=== PATIENT | female | born 1985 | race Caucasian/White ===

== ENCOUNTER → 2018-05-07 11:01 | Outpatient (CLI) | payer OTHER, SELFPAY ==
[2015-08-14 21:39] VITALS: BMI 34.9
[2018-05-07 17:25] LABS: Chlamydia Trachomatis by PCR Negative (Negative); Neisserai gonorrhoeae by PCR Negative (Negative); Probe Check PASS; Sample Adequacy Control PASS; Specimen Processing Control PASS
[2018-05-09 16:23] LABS: HPV Reflexed? NOT INDICATED
== END ==
PROVIDERS: Referring Provider Obstetrics & Gynecology; Visit Provider Obstetrics & Gynecology
DX: Z12.4 Encounter for screening for malignant neoplasm of cervix (principal); Z11.3 Encounter for screening for infections with a predominantly sexual mode of transmission
CPT/HCPCS: 87491; 87591; 87624; 88175; G0145

== ENCOUNTER 2018-05-30 07:06 | Day surgery (SDC) | payer SELFPAY ==
--- NOTE | 2018-05-29 10:14 | HP.PCM_ITS ---
History and Physical Date of Admission: 05/30/18 Surgical History and Physical Ruth Clark, a 32 year old female 3 0 0 0 3, presents for on at . -- Inevitable Miscarriage -- No Heart Tones on 9w3d U/S; Additional comments are: no bleeding yet. MEDICATIONS HISTORY: Patient is also takin. Calcium w/Vit. D, bid 2. Vitamins OTC, daily 3. Vitamin B Complex tablet, One pill by mouth once a day ALLERGIES: NKDA Infections - Chicken pox Illnesses - none Accidents - None Hospitalizations - see surgery Review of Systems: GENERAL - Denies fever, or chills SKIN - Denies skin changes EYES - Denies visual changes EARS - Denies difficulty hearing NOSE - Denies nasal congestion or bleeding MOUTH - Denies sore throat or difficulty swallowing NECK - Denies pain or swelling RESPIRATORY - Denies shortness of breath or wheezing CARDIOVASCULAR - Denies palpitations or chest pain GASTROINTESTINAL - Denies nausea, vomiting, diarrhea, constipation GENITOURINARY - Denies dysuria, frequency of urination, incontinence of urine MUSCULOSKELETAL - Denies joint or muscle pain NEUROLOGICAL - Denies localized numbness or weakness PSYCHIATRIC - Denies depression or anxiety ENDOCRINE - Denies heat or cold intolerance, weight loss or gain HEMATO-IMMUNOLOGIC - Denies excesive bleeding with cuts SOCIAL HISTORY: Alcohol Use - None Smoking - Never Diet - no special diet Lifestyle - moderate stress lifestyle and Exercise - active Seat Belt Use - always Employer - Unemployed Job Description - Homemaker Illicit Drug Use - None Sexual Activity - Residence - owns a home Spouse-Sig Other Name - Merle Spouse-Sig Other Occupation - Automation Engineering Technician Children Name(s) - Sky '12, Leah '14, Cristian(16) Control - FAMILY HISTORY: Paternal Grandfather: DM I. MENSTRUAL HISTORY: LMP Known?- DefiniteAmount/Duration - 3 days, Regularity - Regular, Frequency - monthly days, LMP - 03/22/18, Age Onset Menarche - 13 PAST PREGNANCIES: Total Pregnancies - 4; Full Term Pregnancies - 3; Premature - 0; Abortions, Induced - 0; Abortions, Spontaneous - 0; Ectopics - 0; Multiple Births - 0; Living Children - 3 SURGICAL HISTORY: 1. T and A, 10 yrs ago ; - 2. 08/16/2011 cholecystectomy ; - 3. 09/25/2012 [place] Teeth Removed ; - PHYSICAL EXAM BP- 118/68 Sitting, Left arm, large cuff Temp- 100.6 Taken by Ear Weight- 213.45137 lbs Height- 67 inch BMI:33.43 CONSTITUTIONAL - NAD, well nourished, and well developed SKIN - No rash, lesions, or ulcers HEENT - Normocephalic, PERRLA, EOMI NECK - No nodes, no nuchal rigidity and thyroid normal size and texture LYMPH NODES - Palpation of lymph nodes in neck and groins within normal limits LUNGS - CTA x2 without wheezes, crackles or rales CARDIAC - Regular rate and rhythm without rubs, murmurs, or gallops BREAST - No dominant masses, no tenderness, no axillary adenopathy, no nipple discharge, no skin changes ABDOMEN - Without hepatosplenomegaly, distention, masses, rebound, or guarding; normal bowel sounds; no hernias EXTREMITIES - No edema or calf tenderness NEUROLOGICAL - Cranial nerves II-XII grossly intact PSYCHIATRIC - A and O to time, place, person, mood and affect External Genitial Vagina - non-tender without lesions Urethra/Urethral Meatus - non-tender Bladder - non-tender Vagina - vaginal rubio are pink and moist without loss of rugae and no evidence of atropy Cervix - without cervical motion tenderness and has normal size and features without evident lesions Uterus - multiparous size 6 cm & wt 75-125 g Adnexa - clear without massess or tenderness ASSESSMENT/PLAN: 1. Spontaneous , Incomplete, Without Mention Of Complication Reviewed results of u/s showing no FHTs at 9 weeks. Discussed options for treatment including expectant management vs proceeding with Suction D and E. Wants to proceed with the Suction D and E. Discussed RBAs and all questions answered.
[2018-05-29 16:07] LABS: Hematocrit 43.7 % (37-47); Mean Corp Hgb Conc 34.3 g/gl (32-36); Mean Corpuscular Hgb 31.7 pg (27.0-32.0); Mean Corpuscular Volume 92.4 fL (81-99); Mean Platelet Vol. 10.6 fl (6.2-12.0); Platelet Count 193 K/mm3 (150-450); RBC Distribution Width CV 13.7 % (11.6-14.6); RBC Distribution Width SD 45.9 fl (35.1-43.9); Red Blood Count 4.73 M/mm3 (4.2-5.4); White Blood Count 7.6 K/mm3 (4.4-11.0)
[2018-05-29 16:10] LABS: Scan Indicated on CBC? Y/N NO
[2018-05-30] VITALS (7 sets, daily range): BP systolic 108–114; BP diastolic 63–78; PULSE 69–85; RESP 16–18; TEMP 36.3–37.3; O2SAT 98–100; BMI 32.8
--- NOTE | 2018-05-30 | POC_PTH ---
PATIENT: CHRIS MORE [place] [facility] [place][id number] AGE/SX: 32/F ROOM: RE05/30/[address]: Dr. Fco Luz MD : 1985 BED: DIS: 05/30/2018 SPEC #: [id number] RECD: 05/30/18 13:35 STATUS: RED MCNEAL #: [id number] DALE: 05/30/18 00:[address]: Fco Luz DEPT: SURGICAL PATHOLOGY RECD BY: Joel Cartwright ENTERED: 05/30/18 13:35 SP TYPE: PROD CONC OTHR DR: Dr. Jude Kothari MD Tissues: Product of conception, NOS Procedures: Surgery Specimen Level IV HEADER OPERATION: Suction dilation and curettage PRE-OP DIAGNOSIS: Inevitable TISSUE SUBMITTED: Products of conception MICROSCOPIC DIAGNOSIS Endometrium, curettage: Chorionic villi, decidualized stroma and trophoblastic cells consistent with products of conception. AM:ramirez 06/02/18 MICROSCOPIC DESCRIPTION Slides are reviewed. GROSS DESCRIPTION Received in fixative is one container labeled with the patient's name and designated products of conception. The specimen consists of multiple fragments of hemorrhagic soft tissue that in aggregate measure 7 x 7 x 2 cm. tissue is not identified. Faa Certified Powerplant Mechanic tissue is submitted in two cassettes. / SJ:rg 05/30/18 TC:5 CPT: 82415
--- NOTE | 2018-05-30 08:23 | PCM.OPRPT ---
Report of Operation Date of Procedure: 05/30/18 Pre-Operative Diagnosis: Inevitable Miscarriage Post-Operative Diagnosis: Inevitable Miscarriage Surgery/Procedure Performed:: Suction Dilation and Evacuation Description of Surgical Findings:: 8 cm endometrial cavity with products of conception Type of Anesthesia:: MAC Anesthesiologist: Yasmani Edgar Specimen's removed: Products of conception Estimated Blood Loss (mL): Minimal Fluids Replaced: Crystalloid Description of Procedure: - Surgeon: Fco Luz MD, FACOG Indication: 32 Year patient with incomplete AB at 9-11 weeks gestation with a 9 week IUP without FHTs. Pt has been counseled re RBAs and all questions answered. Procedure: Pt taken to the OR where she was given IV sedation. The patient was prepped and draped in the usual sterile fashion. Anterior cervix grasped and cervix dilated to 10mm. A 9 mm suction curette was inserted into the cervix and all contents removed. Uterus was gently curetted and remaining tissue removed. Pt tolerated the procedure well and was taken to the recovery room in satisfactory condition. Sponge, instruments and needle counts were all correct. There were no apparent complications of the surgery. To Pathology: POC EBL Minimal. Grafts/Implants Used: None - Complications None - Admit VTE Documentation VTE Present on Admission: Yes VTE Mechan Device Prophylaxis: SCD's
--- NOTE | 2018-05-30 08:28 | DCINST_ITS ---
Discharge Diet: No Restrictions Discharge Activity: Return to Normal Activity, May Shower, May Take a Tub Bath May resume sexual activity in: 2 weeks Call your doctor if you observe: Fever of 101 or Higher, Inability to urinate, Inability to have a bowel movement, Using more than one pad per hour Allergies/Adverse Reactions: Allergies No Known Allergies Allergy (Verified 05/29/18 09:27) Medications to take at Discharge Vits [Prenatabs FA ] 1 tablet PO DAILY #30 tablet 07/29/13 B Complex with Vitamin C [B-Complex Plus Vitamin C] 1 each PO DAILY 08/07/15 Calcium Carbonate [Calcium] 600 mg PO DAILY 05/29/18 Primary Care Physician: Kimo Kothari MD [Primary Care Provider] - Test Results: Test results from this visit will be discussed in further detail at your follow- up appointment, if applicable. Please Follow Up With: Fco Luz MD When: 2-3 weeks
== END 2018-05-30 10:37 | disposition home or self-care (01) ==
LOC: SDC 07:07 → AC 07:07
PROVIDERS: Family Provider Family Medicine; PCP Family Medicine; Referring Provider Obstetrics & Gynecology; Visit Provider Obstetrics & Gynecology
PROC: (CPT 59812; principal; 2018-05-30 08:15)
DX: O03.4 Incomplete spontaneous abortion without complication (principal)
CPT/HCPCS: 59812; 36415; 85027; 86850; 86900; 88305; J7120

== ENCOUNTER → 2019-04-08 | Outpatient (CLI) | payer SELFPAY ==
[2018-05-30 07:26] VITALS: BMI 32.8
[2019-04-08 17:28] LABS: Chlamydia Trachomatis by PCR Negative (Negative); Neisserai gonorrhoeae by PCR Negative (Negative); Probe Check PASS; Sample Adequacy Control PASS; Specimen Processing Control PASS
== END | disposition home or self-care (01) ==
LOC: LABSPEC 13:52
PROVIDERS: PCP Family Medicine; Visit Provider Obstetrics & Gynecology
DX: Z11.3 Encounter for screening for infections with a predominantly sexual mode of transmission (principal)
CPT/HCPCS: 87491; 87591

== ENCOUNTER → 2019-04-24 12:16 | Outpatient (CLI) | payer SELFPAY ==
[2018-05-30 07:26] VITALS: BMI 32.8
[2019-04-24 12:49] LABS: Color, Urine Yellow (Yellow); Glucose, Dipstick Normal (Normal); Ketone-Dipstick Negative (Negative); Leukocyte Esterase-Dipstick 100 /ul (Negative); Nitrite-Dipstick Negative (Negative); Occult Blood-Urine Negative /ul (Negative); Protein-Dipstick Negative (Negative); Urine Bilirubin Dipstick Negative (Negative); Urine Clarity Sl. Cloudy (Clear); Urine Urobilinogen Normal (Normal); Urine pH 6.5 (5.0 - 8.0)
[2019-04-24 12:58] LABS: Absolute Lymphocyte Count 1.38 X10^3/uL (0.83-4.51); Absolute Neutrophil Count 6.1 X10^3/uL (2.0-7.7); Basophil# 0.03 X10^3/uL; Basophil% 0.4 % (0-1); Eosinophil# 0.16 X10^3/uL; Eosinophils% 1.9 % (0-5); Hematocrit 45.4 % (37-47); Lymphocyte # 1.38 X10^3/ul (4.0); Lymphocyte % 16.6 % (19-41); Mean Corpuscular Hgb 31.2 pg (27.0-32.0); Mean Corpuscular Volume 94.4 fL (81-99); Mean Platelet Vol. 10.4 fl (6.2-12.0); Monocyte# 0.55 X10^3/uL; Monocyte% 6.6 % (0-10); NRBC Flagged by Analyzer 0 % (0-5); Neutrophil # 6.12 X10^3/uL (2.7-7.7); Neutrophil % 73.9 % (47-70); Platelet Count 207 K/mm3 (150-450); RBC Distribution Width CV 12.7 % (11.6-14.6); RBC Distribution Width SD 43.8 fl (35.1-43.9); Red Blood Count 4.81 M/mm3 (4.2-5.4); White Blood Count 8.3 K/mm3 (4.4-11.0)
[2019-04-24 13:58] LABS: Thyroid Stim Hormone (TSH) 2.39 uIU/mL (0.358-3.74)
[2019-04-24 14:36] LABS: HIV - WCH Non-Reactive (Nonreactive); Hepatitis B Surface Antigen Non-Reactive (Nonreactive); Hepatitis C Antibody Non-Reactive (Nonreactive); Rubella IgG 188.6 IU/mL
[2019-04-30 02:24] LABS: Prenatal RPR NONREACTIVE (NONREACTIVE)
== END ==
PROVIDERS: Obstetrics & Gynecology; PCP Family Medicine; Visit Provider Obstetrics & Gynecology
DX: Z34.81 Encounter for supervision of other normal pregnancy, first trimester (principal)
CPT/HCPCS: 36415; 81002; 84443; 85025; 86703; 86762; 86803; 87340

== ENCOUNTER → 2019-10-20 | Outpatient (CLI) | payer SELFPAY ==
[2018-05-30 07:26] VITALS: BMI 32.8
== END | disposition home or self-care (01) ==
LOC: LABSPEC 10-21 09:17
PROVIDERS: PCP Family Medicine; Visit Provider Obstetrics & Gynecology
DX: Z36.85 Encounter for antenatal screening for Streptococcus B (principal)
CPT/HCPCS: 87081

== ENCOUNTER 2019-11-04 07:00 | Inpatient (IN) | payer SELFPAY ==
[2018-05-30 07:26] VITALS: BMI 32.8
[2019-11-04] VITALS (18 sets, daily range): BP systolic 111–135; BP diastolic 57–86; PULSE 74–98; RESP 14–16; TEMP 36.7–37.3; O2SAT 96–99; BMI 41.1
[2019-11-04] MEDS: Lactated Ringers 1,000 ML 50 ML IV (08:00)
[2019-11-04 08:24] LABS: Partial Thromboplast Time 23.4 Seconds (24.1-36.2); Prothrombin Time (Protime)PT. 12.6 SECONDS (11.7-14.9)
[2019-11-04 08:25] LABS: Absolute Lymphocyte Count 1.22 X10^3/uL (0.83-4.51); Absolute Neutrophil Count 7.5 X10^3/uL (2.0-7.7); Basophil# 0.04 X10^3/uL; Basophil% 0.4 % (0-1); Eosinophil# 0.13 X10^3/uL; Eosinophils% 1.3 % (0-5); Hematocrit 39.2 % (37-47); Hemoglobin 12.9 g/dL (12.0-15.0); Lymphocyte # 1.22 X10^3/ul (4.0); Lymphocyte % 12.6 % (19-41); Mean Corp Hgb Conc 32.9 g/dL (32-36); Mean Corpuscular Volume 94.2 fL (81-99); Mean Platelet Vol. 11.5 fl (6.2-12.0); Monocyte# 0.71 X10^3/uL; Monocyte% 7.3 % (0-10); NRBC Flagged by Analyzer 0 % (0-5); Neutrophil # 7.54 X10^3/uL (2.7-7.7); Neutrophil % 77.8 % (47-70); Platelet Count 181 K/mm3 (150-450); RBC Distribution Width CV 13.7 % (11.6-14.6); RBC Distribution Width SD 47.6 fl (35.1-43.9); Red Blood Count 4.16 M/mm3 (4.2-5.4); White Blood Count 9.7 K/mm3 (4.4-11.0)
[2019-11-04] MEDS: Oxytocin 30 units/NS 500 ml 30 UNITS/500 ML IV.SOLN IV (08:27)
[2019-11-04 08:33] LABS: AST(SGOT) 13 U/L (15-37); Alanine Aminotransfer ALT/SGPT 11 U/L (13-56); Creatinine, Serum 0.65 mg/dL (0.55-1.02); EST Glomerular Filtration Rate 111 mL/min (>60); Est Glom Filt Rate - Afr Amer 134 mL/min (>60); Estimated Creatinine Clearance 119.71 ml/min; Uric Acid 4.5 mg/dL (2.6-6.0)
--- NOTE | 2019-11-04 09:03 | HP.PCM_ITS ---
History and Physical Date of Admission: 11/04/19 [facility] [place] ANTEPARTUM RECORD - HISTORY AND PHYSICAL (11/04/2019) Name: HCRIS MORE History of This : This is a 34-year-old Ab1 who presents for induction for gestational hypertension at 38+ weeks gestation. care has otherwise been uneventful. OB Physician: ROSE Saraland's Physician: Ivana Ruiz..................................................................... : 1985 Age: 34 Address: [address] [place] [address] Phone: (h) [phone] (o) [phone] Insurance Carrier: Emergency Contact: KIANNA MORE/MOTHER [phone] ...................................................................... Final GRIS: 11/16/19 By Ultrasound: 11 weeks 1 day PARITY: (G-Total Pregnancies P-Fullterm,Premature,Induced AB,Spont AB, Ectopics, Multiple,Living) GRIS CONFIRMATION: By LMP: 02/17/19 Final GRIS: 11/16/19 OB PROBLEM LIST: A negative RhoGAM at 28 wks. Declines AFP and CF testing EPDS = 4 has a niece with Down Syndrome Prefers no epidural ALLERGIES: NKDA MEDICATIONS: Augmentin 875 mg-125 mg tablet One pill by mouth twice a day Calcium w/Vit. D bid Vitamins OTC daily Vitamin B Complex tablet One pill by mouth once a day SOCIAL HISTORY: Smoking - Never Alcohol Use - denies drinking Diet - moderate, balanced diet Lifestyle - low stress lifestyle and Exercise - active Employer - Unemployed Job Description - Homemaker Illicit Drug Use - denies use of street drugs Sexual Activity - Residence - lives with Place of - [place], [place] Spouse-Sig Other Name - Smitha Spouse-Sig Other Occupation - Self-employed adoption counselor Spouse-Sig Other Phone No - [phone] Children Name(s) - Sky '12, Leah '14, Cristian(16) PRIOR DELIVERY HISTORY DEL DATE GEST LAB WT LB WT OZ TYPE ANES LABOR TX Feb 22 39 10 8 1 Vag None No 18 Florencio 14 38 8 7 4 Vag None No 19 Apr 19 9 0 0 0 Sab General No 26 Florencio 16 37 6 7 12 Vag None No ANTEPARTUM FLOW CHART VISIT GE RTC FU F F AK U U DATE WK MD WKS HT PN HR M SS BP ED WT AK GL D EF ST __ ____ ___ __ __ ___ __ __ __ ___ __ __ __ ___ __ 22 Sep 38 JMW 6 38 V + + 158/86 1+ 266 tr - 4 50 -2 15 Oct 37 JMW 1 37 V + + 110/70 sl 259 - - 2+ 50 -2 08 Oct 36 JMW 1 36 V + + 134/80 1+ 261 - - ft 50 hi 25 Sep JMW 2 34 V + + 104/68 1+ 259 tr - 04 Oct 11 JMW 3 31 + + 108/62 1+ 255 tr - Sep 07 JMW 3 28 + + 118/70 1+ 250 tr - 16 Aug 04 JMW 4 24 + + 112/68 sl 247 tr - June 30 JMW 4 20 + + 138/84 sl 239 - - 14 May 26 JMW 4 15 + + 124/76 0 236 - - 13 Apr 20 CH 4 on 120/80 0 233 - - ANTEPARTUM NOTE(S): Nov 03 2019: gest HTN; induce, ctxs Oct 27 2019: Ctxs-occas, Low Pressure,Good FM Oct 20 2019: GBS Today,LARC form signed,Low cramping Oct 06 2019: Ctxs-occas, Good FM,Feeling Well Sep 15 2019: Feeling Well,Good FM Aug 24 2020: CBC,OGCT,Antibody Screen & Rhogam Today Jul 28 2019: Glucola/Instructions given,Good FM Jul 02 2019: Sono Today,Good FM,Feeling Well May 26 2019: Nausea Resolved, Questionable Quickening Apr 23 2020: L calf and thigh tenderness COMPREHENSIVE ANTEPARTUM NOTE(S): Nov 03 2019: Chris presents for her PNV. She reports good FM, and has 1+ pitting edema in her Lt lower extremity and only sl edema in her Rt lower extremity. Initial BP is elevated at 158/86 sitting Lt arm Lg cuff. Repeat BP Rt arm Lg cuff lying on Lt side is 118/72. Pt sts she awoke this am with a mild ACKERMAN, but sts she is over tired and did not sleep well. No visual disturbances. JT Oct 28 2019: H taken to OB. tkg Aug 25 2019: Chris presents here today for PNV with 50 gm 1 hr OGCT, CBC and Antibody Screen drawn via undersigned in (R) antecubital with 23g x 1 attempt without problem. After blood draw Rhogam full dose was given in RUOQ IM without problem as well for history of A Negative blood type. Good FM and denies new concerns at this time. MARY Apr 24 2019: (m,f,m,*) NOB US reveals GRIS of 20 inconsistent with LMP. GA 10w4d. FHR on US 150. NOB RN appt with no questions. Labs drawn today and understands no news is good news. Reports previous hot spot behind left calf with last and studies done which revealed it was fine, just a vein. After a road trip last week she noticed it was hurting already with it traveling up the leg. No redness, warmth or edema. Advised to buy thigh high RED hose to try. If this is not working or any redness etc develops she should call for additional studies to be done. Thinks this is her last , but understands it can get worse with each . EPDS=4 with no concerns. To start routine PNV and return in 4 weeks. - Apr 24 2019: Chris is here for her NOB visit at 10 w 4 d, she is a A1 L3 with an GRIS of 11/16/2019. She and her , Smitha, have three children at home; all were delivered by . She plans a vaginal delivery without an epidural at [facility], and will breastfeed. Past history updated. Chris states that she feels generally well, and has only experienced a few periods of nausea, but felt better after eating. Small frequent meals with protein included throughout the day and adequate water hydration of at least one gallon per 24 hours encouraged. C/O left high/calf pain, no erythema or warmth noted; state sthat she had a similar issue last ; will discuss this further with Fanta Davison CNM today. Office practice patterns reviewed, including labs that will be collected today. She has read through the office handbook, including emergencies/danger signs to report, and common OTC medications approved/not approved for use during . She knows to report any suspected UTI's. Round ligament pain discussed. Chris is a life long non- smoker, and she denies use of drugs or ETOH. She takes a gummy vitamin and states that she tolerates this well. Genetic Screening form completed, her has a niece with Down Syndrome. Chris declines AFP and CF testing, consent signed as such. History of depression/anxiety denied, EPDS = 4 today. Water and dietary needs for reviewed, including recommended weight gain, caloric needs, limiting empty calories, and limiting caffeine to one cup a day. Printed guide for food safety during provided with review. Chris walks several times a week, and plans to continue to do so. Kegel exercises reviewed. Lifting restrictions discussed. Chris states that she understands all information provided during NOB visit and that she has no questions following same. AW New Apr 08 2019: ok Apr 08 2019: Chris presents here today for Missed Menses appointment. 33 y.o. G 5 P 3 non-smoker with regular menses and LMP of 02-17-19 lasting her average of 3-4 days. UPT is positive today in our Office. Presents at 7 weeks with an approximate GRIS of 10--20. Denies spotting/bleeding thus far with brief review of danger signs and bleeding with . Reports having nausea and tender breasts. Currently taking an OTC Vitamin with Educational Materials given. Medication and Allergy lists up-dated. History of all normal pap screenings from 2010 through 04/2018. MARY REVIEW OF SYSTEMS: GENERAL - Denies fever, or chills SKIN - Denies rash, new skin lesions, or change in moles EYES - Denies blurred vision, or change in visual acuity EARS - Denies ear pain, or difficulty hearing NOSE - Denies nasal congestion, discharge, or bleeding MOUTH - Denies sore throat, or difficulty swallowing NECK - Denies pain or swelling RESPIRATORY - Denies shortness of breath, cough, wheezing CARDIOVASCULAR - Denies palpitations, chest pain, orthopnea, PND, peripheral edema, syncope or claudication GASTROINTESTINAL - Denies nausea, vomiting, diarrhea, constipation, Denies abdominal pain, melena and or bright red blood GENITOURINARY - Denies dysuria, frequency of urination, urgency, or hesitancy MUSCULOSKELETAL - Denies joint or muscle pain, or back pain NEUROLOGICAL - Denies localized numbness, weakness, or tingling PSYCHIATRIC - Denies depression, anxiety, substance abuse or suicide attempts ENDOCRINE - Denies heat or cold intolerance, weight loss or gain, increasing thirst HEMATO-IMMUNOLOGIC - Denies easy bruising, bleeding, oral ulcerations or recurrent infections GENETICS SCREENING: Age 35+ years: No Thalassemia: No Neural Tube Defect: No Down Syndrome: Yes, spouse's niece SANDY-SACHS: No Sickle Cell Disease: No Hemophilia: No Musc. Dystrophy: No Cystic Fibrosis: No-declines screening Gregory Chorea: No Mental Retardation: No Fragile X: No Other genetic: No Other defects: No SABs/still births: No Drugs since LMP: No INFECTION HISTORY: High risk AIDS: No High risk Hepatitis: No Exposed to TB: No Exposed to Herpes: No Rash/viral illness since LMP: No History of STD: No MENSTRUAL HISTORY: *Menses Amount/Duration: 3 daysMenses Regularity: RegularFrequency: monthlyBCP's at Conception: NoMenarche (Age Onset): 13HCG+: 05/06/2018* PAST SUMMARY: PARITY: 1. Total Pregnancies............ 5 2. Full Term Pregnancies........ 3 3. Premature.................... 0 4. Abortions - Induced.......... 0 5. Abortions - Spontaneous...... 1 6. Ectopics..................... 0 7. Multiple Births.............. 0 8. Living Children.............. 3 PAST #1: Date of :.................. 02/22/11 Gestation Weeks:................ 39 Length of labor(hours):......... 10 Sex:............................ M Weight-lbs:............... 8 Weight-oz:................ 1 Type of Delivery:............... Vag Type of Anesthesia:............. None Place of Delivery:.............. [place] Treatment of Labor?:.... No Comment: PAST #2: Date of :.................. 07/29/13 Gestation Weeks:................ 38 Length of labor(hours):......... 8 Sex:............................ F Weight-lbs:............... 7 Weight-oz:................ 4 Type of Delivery:............... Vag Type of Anesthesia:............. None Place of Delivery:.............. [place] Treatment of Labor?:.... No Comment: PAST #3: Date of :.................. 08/07/15 Gestation Weeks:................ 37 Length of labor(hours):......... 6 Sex:............................ M Weight-lbs:............... 7 Weight-oz:................ 12 Type of Delivery:............... Vag Type of Anesthesia:............. None Place of Delivery:.............. [place] Treatment of Labor?:.... No Comment: PAST #4: Date of :.................. 05/30/18 Gestation Weeks:................ 9 Length of labor(hours):......... 0 Sex:............................ Weight-lbs:............... 0 Weight-oz:................ 0 Type of Delivery:............... Sab Type of Anesthesia:............. General Place of Delivery:.............. [place] Treatment of Labor?:.... No Comment: D+C PHYSICAL EXAMINATION General Appearence: 34 yo female in no acute distress Vital Signs: AF, VSS Heart: RRR without rubs or gallops Lungs: CTA x 2 Breasts: deferred Abdomen: gravid Pelvis: Cervix: Presentation: cephalic Station: Fetus: Size: AGA Movement: present Heart: present Labs for : CHRIS MORE since 02/19/2019 ORDER DATEIN DESCRIPTION VALUE UNITS RANGE A+ COMMENT CULTURE, GROUP B STREPTOCOCCUS 10/20/19 NOTE Original Ordering Provider: Phillip Fernandez JUDITH Culture Group B Beta Streptococcus is not isolated. Reviewed by PHILLIP BB ANTIBODY SCREEN 08/25/19 NOTE Original Ordering Provider: PHILLIP FERNANDEZ ANTIBODY SCR negative negative Reviewed by PHILLIP GLUCOSE CHALLENGE 50GM 1 HOUR 08/25/19 NOTE Original Ordering Provider: PHILLIP FERNANDEZ GLUCOSE CHALLENGE 50GM 1 HOUR GLUCOSE CHALLENGE 50 GMS 1 HOUR GLUCOSE 1HR 88 mg/dl 70 - 140 Reviewed by PHILLIP CBC + DIFF 08/25/19 NOTE Original Ordering Provider: PHILLIP FERNANDEZ CBC + DIFF CBC-COMPLETE BLOOD COUNT WBC 9.0 x 10EE3/UL 4.5 - 10.8 RBC 4.02 x 10EE6/UL 4.10 - 5.30 L HEMOGLOBIN 12.9 g/dl 12.0 - 16.0 HEMATOCRIT 37.8 % 34.0 - 46.0 MCV 94 fl 80 - 99 MCH 32 pg 27 - 33 MCHC 34 X10 3 32 - 36 RDW/CV 13.6 % 12.0 - 15.6 PLATELET 194 x10EE3/UL 150 - 450 MPV 9.6 fl 6.6 - 10.5 AUTOMATED DIFFERENTIAL NEUT % 79.9 % 46.0 - 76.0 H LYMPH % 12.4 % 20.0 - 45.0 L MONOS % 6.1 % 0.0 - 10.0 EO % 1.2 % 0.0 - 7.0 BASO % 0.4 % 0.0 - 2.0 LYMPH # 1.10 x10EE3/UL 0.80 - 2.80 NEUT # 7.20 x10EE3/UL 1.50 - 7.10 H MONO # 0.60 x10EE3/UL 0.20 - 1.00 EO # 0.10 x10EE3/UL 0.00 - 0.50 BASO # 0.00 x10EE3/UL 0.00 - 0.10 MANUAL DIFF N/A MORPHOLOGY N/A Reviewed by PHILLIP RPR 04/24/19 NOTE Original Ordering Provider: Phillip Fernandez RPR NONREACTIVE NONREACTIVE Reviewed by PHILLIP T AND S-NO CHARGE W/PNP 04/24/19 Reason for Type AND Screen/Red Cells: Surgery? [facility]~[place], [address]~ BLOOD TYPE GEL A NEGATIVE N AB SCREEN GEL NEGATIVE N Reviewed by TAWANDA HEPATITIS C ANTIBODY 04/24/19 NOTE Original Ordering Provider: Phillip Fernandez HEPATITIS C AB Non-Reactive Nonreactive Non Reactive: < 0.8 Equivocal: >/= 0.8 to < 1.0 Reactive: >/= 1.0 The CDC recommends that a reactive/equivocal HCV antibody result be followed up by the HCV Nucleic Acid Amplification test (381518) Reviewed by TAWANDA HEPATITIS B SURFACE ANTIGEN 04/24/19 NOTE Original Ordering Provider: Phillip Fernandez HEPB SURFACE AG Non-Reactive Nonreactive Reviewed by TAWANDA HIV - [facility] 04/24/19 NOTE Original Ordering Provider: Phillip Fernandez HIV [facility] Non-Reactive Nonreactive Reviewed by TAWANDA RUBELLA IGG 04/24/19 NOTE Original Ordering Provider: Phillip Fernandez RUBELLA IGG 188.6 IU/mL Antibody results Interpretation of Immune Status < 5 IU/ml Presumed Non-immune 5 - < 10 IU/ml Equivocal > or = 10 IU/ml Presumed Immune Reviewed by TAWANDA THYROID STIM HORMONE (TSH) 04/24/19 NOTE Original Ordering Provider: Phillip Fernandez TSH 2.39 uIU/mL 0.358-3.74 Reviewed by TAWANDA URINALYSIS, ROUTINE (DIPSTICK) 04/24/19 NOTE Original Ordering Provider: Phillip Fernandez COLOR Yellow Yellow CLARITY Sl. Cloudy Clear GLUCOSE, UR Normal mg/dl Normal BILIRUBIN URINE Negative mg/dL Negative KETONE UR Negative mg/dl Negative SP.GR. DIPSTX 1.010 1.002-1.030 PH UR 6.5 w 5.0 - 8.0 PROT DIPSTX Negative mg/dl Negative UROBILI Normal mg/dl Normal NITRITE UR Negative Negative OCCULT BLOOD-UR Negative /ul Negative LEUK ESTERASE 100 /ul Negative H Reviewed by TAWANDA CBC W/DIFF, AUTOMATED 04/24/19 NOTE Original Ordering Provider: Phillip Fernandez WBC 8.3 K/mm3 4.4-11.0 RBCw 4.81 M/mm3 4.2-5.4 HGB 15.0 g/dL 12.0-15.0 HCT 45.4 % 37-47 MCV 94.4 fL 81-99 MCH 31.2 pg 27.0-32.0 MCHC 33.0 g/dL 32-36 RDW CV 12.7 % 11.6-14.6 RDW SD 43.8 fl 35.1-43.9 PLT 207 K/mm3 150-450 MPV 10.4 fl 6.2-12.0 NEUT% 73.9 % 47-70 H LY% 16.6 % 19-41 L MONO% 6.6 % 0-10 EO% 1.9 % 0-5 BASO% 0.4 % 0-1 IM GRAN % 0.600 % 0.0-0.9 IG% - Immature Granulocytes (promyelocytes, myelocytes and metamyelocytes) > 1% indicates that a LEFT SHIFT is Present. ABSOLUTE NEUT 6.1 X10 3/uL 2.0-7.7 ABSOLUTE LYMPH 1.38 X10 3/uL 0.83-4.51 NRBC, FLAGGED 0 % 0-[address]/[facility] BY PCR 04/08/19 NOTE Original Ordering Provider: Phillip Fernandez CHLAM TRAC PCR Negative Negative NG BY PCR Negative Negative Reviewed by TAWANDA w Impression /Plan: 38 weeks 2 days gestation intrauterine with gestational hypertension. Headache this morning has resolved and blood pressures okay. PIH labs okay. Plan Pitocin and rupture of membranes. Preparations in progress for delivery.
[2019-11-04] MEDS: Oxytocin 30 units/NS 500 ml 30 UNITS/500 ML IV.SOLN 334 UNITS IV (12:16)
--- NOTE | 2019-11-04 12:24 | PCM.OPRPT ---
Vaginal Delivery Maternal Presentation: Medically Indicated Induction - Gestational hypertension Method of Induction: Pitocin, Amniotomy Medical Reason for Induction: Gestational Hypertension Amniotic Membrane Rupture Type: Artificial Amniotic Fluid Description: Clear Final GRIS: 11/16/19 Final GRIS Source: US <20 weeks Gestational age: 38 Weeks and 2 Days Date of Procedure: 11/04/19 Pre-Operative Diagnosis: IUP, Gestational Hypertension Post-Operative Diagnosis: IUP, Gestational Hypertension Surgery/ Procedure Performed: Spontaneous Vaginal Delivery Type of Anesthesia: None Description of Procedure: Spontaneous vaginal delivery of a viable male infant with Apgars of 8/9 from an occiput anterior presentation with clear amniotic fluid and normal three-vessel placenta. Cord around the neck x1 loose. No episiotomy. First-degree midline laceration repaired with a single [id number] Rapide Vicryl suture. Sponges okay. Delivery physician: Fco Luz M.D. Presentation: Vertex Placental Delivery Description: Spontaneous Placenta Disposition: [facility] Cord Vessel Description: 3 Vessels Cord Entanglement: Around neck x 1, loose Estimated Blood Loss: 250 cc Infant A gender: Male (1 minute): 8 (5 minute): 9 Episiotomy Description: None Laceration: Midline, 1st degree Medications given after delivery: IV Pitocin Complications: None
--- NOTE | 2019-11-04 12:27 | DCINST_ITS ---
<Fco Luz - Last Filed: 11/04/19 12:27> Discharge Diet: No Restrictions Discharge Activity: May Shower, May Take a Tub Bath May resume sexual activity in: 4-6 weeks Additional Activity Instructions:: Nothing in the vagina for 4-6 weeks. You may return to work/school in 6 weeks. Call your doctor if you observe: Inability to urinate, Inability to have a bowel movement, Using more than one pad per hour Additional Instructions: If you experience any of the following, contact your healthcare provider. * Bleeding that soaks a pad every hour for 2 hours * Fever 100.4 or higher * Unrelieved incision or abdominal pain * Swelling, redness, discharge or bleeding from your incision or episiotomy site * Your incision begins to separate * Problems urinating (including inability to urinate or burning while urinating). * Visual changes * Severe headache * Flu-like symptoms * Pain or redness in one of both of your breasts * Pain, warmth, tenderness or swelling in your legs, especially the calf area * Frequent nausea and vomiting * Symptoms of depression or anxiety If you experience any of the following, call 911 or go to the nearest Emergency Room. * Chest pain * Problems breathing * Seizure activity * Partial or complete paralysis of a body part, slurred speech, weakness or drooping of the face, or a sudden inability to walk or hold your balance Allergies/Adverse Reactions: Allergies No Known Allergies Allergy (Verified 11/04/19 07:31) Medications to take at Discharge B Complex with Vitamin C [B-Complex Plus Vitamin C] 1 each PO DAILY 08/07/15 Calcium Carbonate [Calcium] 600 mg PO DAILY 05/29/18 Vits [Prenatabs FA ] 1 tab PO DAILY 11/04/19 Acetaminophen [Tylenol] 1,000 mg PO Q8H PRN PRN tab 11/05/19 Ibuprofen [Motrin] 600 mg PO Q6H PRN PRN tab 11/05/19 Please Follow Up With: Fco Luz MD - [phone] When: Call to make an appointment with your doctor in 6 weeks. Primary Care Physician: Kimo Kothari MD [Primary Care Provider] - Test Results: Test results from this visit will be discussed in further detail at your follow- up appointment, if applicable. <Jasbir Clark - Last Filed: 11/05/19 07:33> Additional Instructions: If you experience any of the following, contact your healthcare provider. * Bleeding that soaks a pad every hour for 2 hours * Fever 100.4 or higher * Unrelieved incision or abdominal pain * Swelling, redness, discharge or bleeding from your incision or episiotomy site * Your incision begins to separate * Problems urinating (including inability to urinate or burning while urinating). * Visual changes * Severe headache * Flu-like symptoms * Pain or redness in one of both of your breasts * Pain, warmth, tenderness or swelling in your legs, especially the calf area * Frequent nausea and vomiting * Symptoms of depression or anxiety If you experience any of the following, call 911 or go to the nearest Emergency Room. * Chest pain * Problems breathing * Seizure activity * Partial or complete paralysis of a body part, slurred speech, weakness or drooping of the face, or a sudden inability to walk or hold your balance Test Results: Test results from this visit will be discussed in further detail at your follow- up appointment, if applicable.
--- NOTE | 2019-11-04 15:48 | NURSING ---
[employer] student charting reviewed and used for educational and learning purposes.
[2019-11-04] MEDS: Acetaminophen 500 MG Tablet 1000 MG PO (21:07)
[2019-11-05] VITALS: BP 113/60; PULSE 72; RESP 16; TEMP 37.1
[2019-11-05 04:00] VITALS: BP 117/64; PULSE 71; RESP 16; TEMP 36.9
[2019-11-05] MEDS: Ibuprofen 600 MG Tablet PO (04:40)
--- NOTE | 2019-11-05 07:33 | PN.OBGYN_ITS ---
Subjective: Objective: No overnight complaints. Pain well controlled. Denies nausea vomiting chest pain shortness of breath - Physical Exam Vitals/I&O's: Vital Signs Temp Pulse Resp BP Pulse Ox 98.5 F 71 16 117/64 99 11/05/19 04:00 11/05/19 04:00 11/05/19 04:00 11/05/19 04:00 11/04/19 14:05 Oxygen Delivery Method Room Air Weight: 263 lb Body Mass Index (BMI) 41.1 Intake and Output for Last 24 Hours 11/03/19 11/04/19 11/05/19 23:59 23:59 23:59 Intake Total 1129.21 / 1129.21 Output Total 400 / 400 Balance 729.21 / 729.21 General: Alert, Oriented x3, Cooperative, No apparent distress HEENT: Atraumatic, Normocephalic Oral: Moist Mucosa Neck: Supple Abdomen: Soft, Non Tender, Gravid - Fundus firm and at umbilicus Psych/Mental Status: Normal Affect, Appropriate, Alert and oriented to time, place, person, mood and affect Laboratory Results 11/04/19 07:55: WBC 9.7, RBC 4.16 L, Hgb 12.9, Hct 39.2, MCV 94.2, MCH 31.0, MCHC 32.9, RDW Std Deviation 47.6 H, RDW Coeff of Maurice 13.7, Plt Count 181, MPV 11.5, Immature Gran % (Auto) 0.600, Neut % (Auto) 77.8 H, Lymph % (Auto) 12.6 L, [place] % (Auto) 7.3, Eos % (Auto) 1.3, Baso % (Auto) 0.4, Absolute Neuts (auto) 7.5, Absolute Lymphs (auto) 1.22, Nucleated RBC % 0 11/04/19 07:55: Blood Type A NEGATIVE, Antibody Screen NEGATIVE 11/04/19 07:55: PT 12.6, INR 1.0, APTT 23.4 L 11/04/19 07:55: Creatinine 0.65, Estim Creat Clear Calc 119.71, Est GFR (MDRD) Af Amer 134, Est GFR (MDRD) Non-Af 111, Uric Acid 4.5, AST 13 L, ALT 11 L 11/04/19 15:20: Screen NEGATIVE, Baby's Blood Type O POSITIVE, Baby's YAMINI NEGATIVE Current Medications Acetaminophen (Tylenol) 1,000 mg PO Q8H PRN PRN PRN Reason: Pain Score 1-3/10 Last Admin: 11/04/19 21:07 Dose: 1,000 mg Documented by: Bisacodyl (Dulcolax) 10 mg RECTAL UD PRN PRN Reason: If no BM Dibucaine (Dibucaine) 1 applic TOPICAL TID PRN PRN; Protocol PRN Reason: Discomfort Hydrocortisone (Hytone) 1 applic TOPICAL TID PRN PRN; Protocol PRN Reason: Discomfort Ibuprofen (Motrin) 600 mg PO Q6H PRN PRN PRN Reason: Pain Score 1-3/10 Last Admin: 11/05/19 04:40 Dose: 600 mg Documented by: Methylergonovine Maleate (Methergine) 0.2 mg IM X1 PRN PRN Reason: Excess bleeding/uterine atony Ondansetron HCl (Zofran) 4 mg IV Q4H PRN PRN PRN Reason: Nausea Oxycodone HCl (Oxyir) 5 - 10 mg PO Q4H PRN PRN PRN Reason: Pain Score 4-10/10 Senna/Docusate Sodium (Senokot-S, [place]ore[place]-Colace) 1 - 2 tablet PO DAILY PRN PRN PRN Reason: Constipation Simethicone (Mylicon) 80 mg PO PCHS PRN PRN Reason: Indigestion/Stomach pain Sodium Chloride () 5 - 15 ml IV UD PRN PRN Reason: SALINE FLUSH Zolpidem Tartrate (Ambien (Generic)) 5 mg PO QHS PRN PRN PRN Reason: Insomnia Medical Necessity - Tobacco Use Smoking Status: Never smoker Assessment/Plan All Active Problems contractions (Acute) day 1. Pain well controlled. Breast-feeding. Okay to DC home
[2019-11-05] MEDS: Senna/Docusate Sodium 1 Tablet PO (08:28)
[2019-11-05 08:30] VITALS: BP 119/66; PULSE 79; RESP 16; TEMP 36.6
[2019-11-05 13:00] VITALS: BP 118/60; PULSE 82; RESP 16; TEMP 36.7
== END 2019-11-05 14:50 | disposition home or self-care (01) | DRG 807 ==
PROVIDERS: Admitting Provider Obstetrics & Gynecology; PCP Family Medicine; Visit Provider Obstetrics & Gynecology
DX: O13.4 Gestational [pregnancy-induced] hypertension without significant proteinuria, complicating childbirth (principal); Z37.0 Single live birth; O69.81X0 Labor and delivery complicated by cord around neck, without compression, not applicable or unspecified; O70.0 First degree perineal laceration during delivery; Z3A.38 38 weeks gestation of pregnancy
CPT/HCPCS: 59050; 82565; 84450; 84460; 84550; 85025; 85461; 85610; 85730; 86850; 86900; 86901; 90384; 99218; J7120; G0378; J2790

== ENCOUNTER → 2022-05-30 | Outpatient (CLI) | payer SELFPAY ==
[2022-05-30 11:39] LABS: Absolute Lymphocyte Count 1.74 X10^3/uL (0.83-4.51); Absolute Neutrophil Count 6.9 X10^3/uL (2.0-7.7); Basophil# 0.04 X10^3/uL; Basophil% 0.4 % (0-1); Eosinophil# 0.22 X10^3/uL; Eosinophils% 2.3 % (0-5); Hematocrit 44.6 % (37-47); Hemoglobin 14.7 g/dL (12.0-15.0); Lymphocyte # 1.74 X10^3/ul (0.83-4.51); Mean Corpuscular Hgb 31.2 pg (27.0-32.0); Mean Corpuscular Volume 94.7 fL (81-99); Mean Platelet Vol. 10.4 fl (6.2-12.0); Monocyte# 0.71 X10^3/uL; Monocyte% 7.4 % (0-10); NRBC Flagged by Analyzer 0 % (0-5); Neutrophil % 71.5 % (47-70); Platelet Count 234 K/mm3 (150-450); RBC Distribution Width CV 13.1 % (11.6-14.6); RBC Distribution Width SD 45.2 fl (35.1-43.9); Red Blood Count 4.71 M/mm3 (4.2-5.4); White Blood Count 9.7 K/mm3 (4.4-11.0)
[2022-05-30 12:46] LABS: HIV - WCH Non-Reactive (Nonreactive); Hepatitis B Surface Antigen Non-Reactive (Nonreactive); Hepatitis C Antibody Non-Reactive (Nonreactive); Rubella IgG Reactive (Nonreactive); Syphilis Antibodies Non-reactive
[2022-06-01 22:07] LABS: Chlamydia By Nucleic Acid AMP Negative (Negative); Gonococcus By Nucleic Acid AMP Negative (Negative)
== END | disposition home or self-care (01) ==
PROVIDERS: PCP Family Medicine; Referring Provider Advanced Practice Midwife; Visit Provider Advanced Practice Midwife
DX: O09.90 Supervision of high risk pregnancy, unspecified, unspecified trimester (principal); Z3A.00 Weeks of gestation of pregnancy not specified
CPT/HCPCS: 36415; 85025; 86703; 86762; 86780; 86803; 86850; 86900; 86901; 87086; 87088; 87340; 87491; 87591